=== PATIENT | male | born 1970 | race Caucasian/White ===

== ENCOUNTER 2021-11-21 11:13 | Emergency (ER) | payer OTHER ==
[~2021-11-21] VITALS: Ht 172.7 cm; Wt 74.8 kg
[2021-11-21 12:00] VITALS: BP 121/68
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
--- NOTE | 2021-11-21 13:31 | NUR ---
Patient discharged in custody of [facility] officer Real #[id number] from [facility] in stable condition. Written and verbal after care instructions given. Patient and officer verbalizes understanding of instruction.
== END 2021-11-21 13:33 ==
LOC: ER 11:15
DX: S92.422A Displaced fracture of distal phalanx of left great toe, initial encounter for closed fracture (principal); Y04.0XXA Assault by unarmed brawl or fight, initial encounter; Y93.89 Activity, other specified; Y92.143 Cell of prison as the place of occurrence of the external cause; Y99.8 Other external cause status
CPT/HCPCS: 73660-TC